=== PATIENT | female | born 1960 | race Caucasian/White ===

== ENCOUNTER 2017-02-10 06:40 | Day surgery (SDC) | payer OTHER ==
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
[~2017-02-10] VITALS: Ht 165.1 cm; Wt 92.8 kg
[~2017-02-10 06:40] MED LIST: ABILIFY5 MG PO; ALBUTEROL HFA60 DOSE IN; ASPIRIN EC81 MG PO; CENTRUM SILVE1 PO; DEXILANT30 MG; FLONASE AL50 MCG/ACT; LUNESTA3 MG PO; METOPROLOL SUCC50 MG PO; OXYCODONE HCL10 MG PO; OXYCODONE HCL5 MG PO; PERCOCET1 TA1 PO; PRISTIQ50 MG PO; SINGULAIR10 MG PO; SOMA250 MG PO; VALIUM10 MG PO; VISTARIL50 MG PO; VITAMIN D1000 UNIT PO; XYZAL5 MG PO; ZYZAL PO
--- NOTE | 2017-02-10 07:09 | DIAGNOSTIC IMAGING REPORT ---
PROCEDURE: XR CHEST 1 VIEW INDICATION: Preop, cough. TECHNIQUE: Portable AP view 06:23 a.m. COMPARISON: Chest x-ray 01/20/2016. FINDINGS: Lungs are clear. Heart and mediastinum are normal. Left shoulder arthroplasty. No significant interval change. IMPRESSION: 1. Negative chest.
--- NOTE | 2017-02-10 08:16 | NUR ---
PATIENT ASSESSMENT AND MED/ALLERGY REVIEW COMPLETE. SURGICAL SITE MARKED BY PATIENT. VITALS STABLE. IV STARTED IN L HAND WITH 2 ATTEMPTS. PREOP INSTRUCTIONS DISCUSSED. QUESTIONS ENCOURAGED AND ANSWERED BY RN. WILL CONTINUE TO MONITOR.
--- NOTE | 2017-02-10 14:13 | NUR ---
PT RECEIVED TO PACU AROUSABLE TO VOICE AND COMFORTABLE. FEET ELEVATED. WARM BLANKETS FOR COMFORT. VSS.
[2017-02-10] MEDS ORDERED: HYDROMORPHONE HC2 MG PO (14:15)
--- NOTE | 2017-02-10 14:18 | Provider's Discharge Care Plan ---
Problem, Goal, Plan Problem List 1. Acquired hallux valgus of right foot Goals: Improve function Instructions: Follow up as directed
--- NOTE | 2017-02-10 14:18 | Provider's Discharge Care Plan ---
Problem, Goal, Plan Problem List 1. Acquired hallux valgus of right foot Goals: Improve function Instructions: Follow up as directed
--- NOTE | 2017-02-10 14:47 | DIAGNOSTIC IMAGING REPORT ---
PROCEDURE: XR FOOT 3 VIEWS - RIGHT INDICATION: POST-OP- IN PACU TECHNIQUE: Three views. COMPARISON: Right foot films 06/12/2015 FINDINGS: Side plates, pins, screws, and wires are fixing the first and second metatarsals. There has been further osteolysis and destruction of the distal third metatarsal suggesting osteomyelitis. Pins again noted in the fourth metatarsal and the distal fibula. IMPRESSION: 1. Status post fixation of the first and second metatarsals. 2. Osteolysis involving the distal third metatarsal.
--- NOTE | 2017-02-10 15:04 | NUR ---
POST-OP X-RAYS DONE AND REVIEWED BY DR TORREZ.
--- NOTE | 2017-02-10 15:19 | NUR ---
PT EASILY AROUSABLE TO VOICE. INTERMITTANTLY COMPLAINS "MY FOOT HURTS", RATING PAIN 4-5/10 DOWN FROM 7/10. VSS. FEET ELEVATED.
[2017-02-10 15:46] VITALS: BP 113/65
--- NOTE | 2017-02-10 15:51 | NUR ---
PT AWAKE AND COMFORTABLE WHEN TRANSFERED TO ACUTE CARE. TAKING FEW ICE CHIPS PO. VSS.
[2017-02-10 16:03] VITALS: BP 104/68
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
--- NOTE | 2017-02-10 16:40 | NUR ---
PT STATED SHE HAD NO QUESTIONS ABOUT DISCHARGE INSTRUCTIONS.
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
== END 2017-02-10 16:34 | disposition home or self-care (01) ==
LOC: OR SRH 06:40 → SCU SRH 06:40 → OR SRH 08:30 → ACUTE2 SRH 15:48 → OR SRH 16:34
PROVIDERS: Podiatrist
PROC: 0QBQ0ZZ Excision of Right Toe Phalanx, Open Approach (ICD-10-PCS; principal; 2017-02-10 08:30)
PROC: 0SGN04Z Fusion of Left Metatarsal-Phalangeal Joint with Internal Fixation Device, Open Approach (ICD-10-PCS; principal; 2017-02-10 08:30)
PROC: 0SGM04Z Fusion of Right Metatarsal-Phalangeal Joint with Internal Fixation Device, Open Approach (ICD-10-PCS; principal; 2017-02-10 08:30)
PROC: 0HDRXZZ Extraction of Toe Nail, External Approach (ICD-10-PCS; principal; 2017-02-10 08:30)
PROC: 0SGP04Z Fusion of Right Toe Phalangeal Joint with Internal Fixation Device, Open Approach (ICD-10-PCS; principal; 2017-02-10 08:30)
DX: M21.6X1 Other acquired deformities of right foot (principal); S93.14 Subluxation of metatarsophalangeal joint; M20.41 Other hammer toe(s) (acquired), right foot; L60.0 Ingrowing nail